=== PATIENT | female | born 1960 | race Asian ===

== ENCOUNTER 2022-06-20 09:01 | Emergency (ER) | payer OTHER ==
[2022-06-20 09:21] VITALS: TEMP 99; BMI 34.4
[2022-06-20] MEDS ORDERED: IBUPROFEN 600 MG TABLET (FP) PO ONE ×2 (09:52→09:55)
[2022-06-20 10:05] VITALS: RESP 18
[2022-06-20] MEDS ORDERED: SODIUM CHLORIDE 0.9% 500 ML INFUS.BAG IV ONE (10:08)
[2022-06-20 11:05] LABS: VENOUS O2 SATURATION 86.5 % (70-80); VENOUS PCO2 39.2 mmHg (38-52); VENOUS PH 7.413 (7.310-7.410)
[2022-06-20 11:36] LABS: ALBUMIN 3.8 g/dl (3.4-5.0); BLOOD UREA NITROGEN 10.2 mg/dL (7-18)
[2022-06-20 11:38] LABS: EOS % 2.8 % (0-4.5); HEMATOCRIT 38.2 % (32.4-45.2); HEMOGLOBIN 12.3 GM/dL (10.7-15.3); LYMPH % 20.1 % (8-40); MCH 24.4 pg (25.7-33.7); MCHC 32.3 g/dl (32.0-36.0); MEAN CELL VOLUME 75.4 fl (80-96); MEAN PLT VOLUME 7.5 fl (7.5-11.1); NEUT % 70.1 % (42.8-82.8); PLATELET COUNT 345 10^3/uL (134-434); RBC 5.06 M/mm3 (3.60-5.2); RDW 15.2 % (11.6-15.6); WHITE BLOOD COUNT 14.7 K/mm3 (4.0-10.0)
[2022-06-20 11:39] LABS: CREATININE 0.8 mg/dL (0.55-1.3)
[2022-06-20 11:40] LABS: BILIRUBIN,TOTAL 0.3 mg/dL (0.2-1)
[2022-06-20 15:42] VITALS: BP 138/67; PULSE 88
== END 2022-06-20 15:00 | disposition home or self-care (01) ==
LOC: JER 09:01 → JCOVINFU 09:01 → JER 15:00
DX: R50.9 Fever, unspecified (principal); R05.9 Cough, unspecified
CPT/HCPCS: 0241U-QW; 36415; 71046-TC-FY; 80053; 82803; 84484; 85025; 93005; 93010; 99285-25